=== PATIENT | male | born 1955 | race Caucasian/White ===

== ENCOUNTER 2018-05-26 15:27 | Inpatient (IN) | payer MEDICARE, BC ==
[~2018-05-26] VITALS: Ht 177.8 cm; Wt 104.7 kg
[2018-05-26 17:45] VITALS: BP 142/85
[2018-05-26 18:12] VITALS: BP 142/85
[2018-05-26] MEDS ORDERED: hydrALAzine 20 MG/ML, 1ML IVPush PRN (20:00)
[2018-05-26] MEDS ORDERED: ACETAMINOPHEN 325 MG TABLET PO PRN (20:00)
[2018-05-26] MEDS ORDERED: ONDANSETRON 2MG/ML, 2ML IVPush PRN (20:00)
[2018-05-26 20:17] VITALS: BP 148/84
[2018-05-26] MEDS: PLEASE ENTER ALLERGIES MC SCH (20:30)
[2018-05-26] MEDS ORDERED: PLEASE ENTER ALLERGIES MC SCH (21:30)
[2018-05-26 21:35] LABS: BASOPHILS % (AUTO) 1 % (0-1); EOSINOPHILS # (AUTO) 0.16 x10^3/uL (0-0.4); EOSINOPHILS % (AUTO) 2 % (1-7); LYMPHOCYTES # (AUTO) 1.51 x10^3/uL (1-3.4); LYMPHOCYTES % (AUTO) 14 % (22-44); MD NO; MEAN CORPUSCULAR HEMOGLOBIN 26.2 pg (27.5-34.5); MEAN CORPUSCULAR HGB CONC 32.5 g/dL (33.2-36.2); MEAN CORPUSCULAR VOLUME 80.8 fL (81-97); MEAN PLATELET VOLUME 9.1 fL (7.4-10.4); MONOCYTES # (AUTO) 0.75 x10^3/uL (0.2-0.8); MONOCYTES % (AUTO) 7 % (2-9); NEUTROPHILS # (AUTO) 8.43 x10^3/uL (1.8-6.8); NEUTROPHILS % (AUTO) 77 % (42-75); PLATELET COUNT 207 x10^3/uL (130-400); RED BLOOD COUNT 5.48 x10^6/uL (4.38-5.82); RED CELL DISTRIBUTION WIDTH 15.8 % (9.4-14.8)
[2018-05-26 21:45] LABS: INTERNATIONAL NORMALIZED RATIO 1.08 (0.93-1.1); PROTHROMBIN TIME 11.2 Seconds (9.6-11.5)
[2018-05-26 21:46] LABS: ANION GAP 7 mmol/L (5-15); CALCIUM 9.3 mg/dL (8.5-10.1); CHLORIDE 110 mmol/L (98-107); CREATININE 1.05 mg/dL (0.7-1.3)
[2018-05-26] MEDS: HEPARIN 5,000 UNITS/ML, 1ML SQ SCH (21:57)
[2018-05-26] MEDS: INSULIN LISPRO 100 UNITS/ML, PEN SQ-INSULIN SCH (23:09)
[2018-05-26] MEDS: SODIUM CHLORIDE 0.9% 1,000 ML IV SCH (23:10)
[2018-05-26] MEDS: HYDROcodone/APAP 5/325 TABLET PO PRN (23:59)
[2018-05-27 01:59] VITALS: BP 134/81
[2018-05-27] MEDS: PLEASE ENTER ALLERGIES MC SCH (03:27)
[2018-05-27] MEDS: HYDROcodone/APAP 5/325 TABLET PO PRN ×3 (04:14→18:37)
[2018-05-27] MEDS: HEPARIN 5,000 UNITS/ML, 1ML SQ SCH ×4 (04:15→21:40)
[2018-05-27] MEDS: SODIUM CHLORIDE 0.9% 1,000 ML IV SCH ×2 (06:33→22:38)
[2018-05-27] MEDS: INSULIN LISPRO 100 UNITS/ML, PEN SQ-INSULIN SCH ×3 (07:00→21:40)
[2018-05-27 07:50] VITALS: BP 133/79
[2018-05-27] MEDS: POLYETHYLENE GLYCOL 17 GM PACKET PO SCH (08:22)
[2018-05-27 08:37] LABS: HEMOGLOBIN A1C 7.8 % (4.2-6.3)
[2018-05-27] MEDS ORDERED: MAGNESIUM SULFATE PMX 4GM/100M 100 ML IV ONE (11:30)
[2018-05-27] MEDS: morphine SULFATE 10 MG/ML, 1ML IVPush PRN ×3 (11:47→15:30)
[2018-05-27 12:36] VITALS: BP 129/85
[2018-05-27] MEDS ORDERED: PARO40TA3 PO (12:38)
[2018-05-27] MEDS ORDERED: GABA300S PO (12:38)
[2018-05-27] MEDS ORDERED: METO50TA82 PO (12:39)
[2018-05-27] MEDS ORDERED: METF10003 PO (12:40)
[2018-05-27] MEDS ORDERED: FURO20TA3 PO (12:41)
[2018-05-27] MEDS ORDERED: POTA10TA11 PO (12:42)
[2018-05-27] MEDS ORDERED: TEMA30CA PO (12:43)
[2018-05-27] MEDS ORDERED: LISI-170 PO (12:44)
[2018-05-27] MEDS ORDERED: ATOR-2 PO (12:44)
[2018-05-27] MEDS ORDERED: INSULIN LISPRO 100 UNITS/ML, PEN SQ-INSULIN SCH (15:00)
[2018-05-27] MEDS ORDERED: GLIM4TAB2 PO (17:11)
[2018-05-27] MEDS ORDERED: ASPI-515 PO (17:13)
[2018-05-27] MEDS ORDERED: CLOP75TA52 PO (17:13)
[2018-05-27 20:00] VITALS: BP 146/85
[2018-05-27] MEDS ORDERED: TEMAZEPAM 30 MG CAPSULE PO PRN (22:00)
[2018-05-28 01:38] VITALS: BP 124/80
[2018-05-28 05:09] LABS: BASOPHILS # (AUTO) 0.04 x10^3/uL (0-0.1); BASOPHILS % (AUTO) 1 % (0-1); EOSINOPHILS # (AUTO) 0.33 x10^3/uL (0-0.4); EOSINOPHILS % (AUTO) 5 % (1-7); LYMPHOCYTES # (AUTO) 1.58 x10^3/uL (1-3.4); LYMPHOCYTES % (AUTO) 22 % (22-44); MD NO; MEAN CORPUSCULAR HEMOGLOBIN 26.4 pg (27.5-34.5); MEAN CORPUSCULAR HGB CONC 32.2 g/dL (33.2-36.2); MEAN PLATELET VOLUME 9.4 fL (7.4-10.4); MONOCYTES # (AUTO) 0.72 x10^3/uL (0.2-0.8); MONOCYTES % (AUTO) 10 % (2-9); NEUTROPHILS # (AUTO) 4.49 x10^3/uL (1.8-6.8); NEUTROPHILS % (AUTO) 63 % (42-75); PLATELET COUNT 177 x10^3/uL (130-400); RED BLOOD COUNT 5.18 x10^6/uL (4.38-5.82); RED CELL DISTRIBUTION WIDTH 16.3 % (9.4-14.8)
[2018-05-28 05:16] LABS: CHLORIDE 109 mmol/L (98-107)
[2018-05-28 05:27] LABS: % IRON SATURATION 11 % (20-55); ANION GAP 6 mmol/L (5-15); CALCIUM 8.3 mg/dL (8.5-10.1); CREATININE 0.84 mg/dL (0.7-1.3); IRON LEVEL 28 mcg/dL (65-175); TOTAL IRON BINDING CAPACITY 253 mcg/dL (250-450); TRANSFERRIN 186 mg/dL (200-360)
[2018-05-28] MEDS: HEPARIN 5,000 UNITS/ML, 1ML SQ SCH (06:00)
[2018-05-28] MEDS: INSULIN LISPRO 100 UNITS/ML, PEN SQ-INSULIN SCH ×4 (07:00→22:06)
[2018-05-28 07:20] VITALS: BP 140/91
[2018-05-28] MEDS: HYDROcodone/APAP 5/325 TABLET PO PRN ×2 (08:04→12:29)
[2018-05-28] MEDS: POLYETHYLENE GLYCOL 17 GM PACKET PO SCH (09:00)
[2018-05-28] MEDS: SODIUM CHLORIDE 0.9% 1,000 ML IV SCH (11:58)
[2018-05-28 12:11] VITALS: BP_SYST 104; BP_SYST 128; BP_DIAS 70; BP_DIAS 77
[2018-05-28] MEDS ORDERED: TRANEXAMIC ACID 100 MG/ML, 10ML ONE ×4 (16:06)
[2018-05-28] MEDS ORDERED: KETOROLAC 60 MG/2 ML ONE (16:06)
[2018-05-28] MEDS ORDERED: EPINEPHRINE 1 MG/ML, 1ML ONE (16:07)
[2018-05-28] MEDS ORDERED: ROPIvacaine/PF 0.2%, 20 ML ONE (16:07)
[2018-05-28] MEDS ORDERED: SODIUM CHLORIDE 0.9% 100 ML ONE (16:07)
[2018-05-28] MEDS ORDERED: VANCOMYCIN 1,000 MG ONE (16:07)
[2018-05-28] MEDS ORDERED: MIDAZOLAM 1 MG/ML, 2ML ONE (16:16)
[2018-05-28] MEDS ORDERED: LIDOCAINE GEL 2%, 5ML ONE (16:17)
[2018-05-28] MEDS ORDERED: FENTANYL PF 250 MCG/5ML ONE (16:17)
[2018-05-28] MEDS ORDERED: SUCCINYLCHOLINE 20 MG/ML, 10ML ONE (16:21)
[2018-05-28] MEDS ORDERED: PHENYLEPHRINE 10 MG/ML ONE (16:21)
[2018-05-28] MEDS ORDERED: SCOPOLAMINE PATCH, 1.5MG PATCH.TD72 TD PRN (17:30)
[2018-05-28] MEDS ORDERED: ONDANSETRON 2MG/ML, 2ML IV PRN (17:30)
[2018-05-28] MEDS ORDERED: LABETALOL 5MG/ML, 20ML IV PRN (17:30)
[2018-05-28] MEDS ORDERED: PROMETHAZINE 25 MG/ML, 1ML IV PRN (17:30)
[2018-05-28] MEDS ORDERED: ACETAMINOPHEN 325 MG TABLET PO PRN (17:30)
[2018-05-28] MEDS ORDERED: DIAZEPAM 5 MG/ML, 2ML IVPush PRN (17:30)
[2018-05-28] MEDS ORDERED: OXYcodone 5 MG/5 ML ORAL.SOL UDC PO PRN (17:30)
[2018-05-28] MEDS ORDERED: ALBUTEROL/IPRATROPIUM 2.5MG/0.5MG, 3 ML NPPB PRN (17:30)
[2018-05-28] MEDS ORDERED: MEPERIDINE/PF 25MG/0.5ML IVPush PRN (17:30)
[2018-05-28] MEDS ORDERED: MIDAZOLAM 1 MG/ML, 2ML IV PRN (17:30)
[2018-05-28] MEDS ORDERED: EPHEDRINE 50 MG/ML, 1ML IM PRN (17:30)
[2018-05-28] MEDS ORDERED: PROPOFOL 10 MG/ML, 20ML ONE (18:06)
[2018-05-28] MEDS ORDERED: CEFAZOLIN 1,000 MG ONE (18:06)
[2018-05-28] MEDS ORDERED: ONDANSETRON 2MG/ML, 2ML ONE (18:06)
[2018-05-28] MEDS ORDERED: DEXAMETHASONE 4 MG/ML, 1ML ONE (18:06)
[2018-05-28] MEDS ORDERED: TRANEXAMIC ACID 100 MG/ML, 10ML IV STA (18:23)
[2018-05-28] MEDS ORDERED: KETOROLAC 30 MG/1 ML IVPush PRN (18:30)
[2018-05-28] MEDS ORDERED: HYDROmorphone 2 MG/ML, 1ML ONE (18:36)
[2018-05-28] MEDS ORDERED: FENTANYL PF 100 MCG/2ML ONE ×2 (18:37→19:14)
[2018-05-28] MEDS ORDERED: OXYcodone 5 MG/5 ML ORAL.SOL UDC ONE (18:37)
[2018-05-28] MEDS: FENTANYL PF 100 MCG/2ML IV PRN ×2 (18:47→18:54)
[2018-05-28] MEDS: HYDROmorphone 1 MG/ML, 1ML IV PRN ×3 (18:58→19:18)
[2018-05-28] MEDS ORDERED: TRANEXAMIC ACID 1,000 MG in SODIUM CHLORIDE 0.9% 100 ML IV ONE (19:00)
[2018-05-28 20:00] VITALS: BP 126/77
[2018-05-29 00:02] VITALS: BP 124/73
[2018-05-29 02:08] VITALS: BP 112/70
[2018-05-29 05:56] LABS: MEAN CORPUSCULAR HEMOGLOBIN 26.6 pg (27.5-34.5); MEAN CORPUSCULAR HGB CONC 32.1 g/dL (33.2-36.2); MEAN CORPUSCULAR VOLUME 82.9 fL (81-97); MEAN PLATELET VOLUME 9.6 fL (7.4-10.4); PLATELET COUNT 172 x10^3/uL (130-400); RED BLOOD COUNT 4.88 x10^6/uL (4.38-5.82); RED CELL DISTRIBUTION WIDTH 16.3 % (9.4-14.8)
[2018-05-29] MEDS: SODIUM CHLORIDE 0.9% 1,000 ML IV SCH (06:09)
[2018-05-29 06:30] VITALS: BP 117/80
[2018-05-29 06:35] LABS: BASOPHILS # (AUTO) 0.01 x10^3/uL (0-0.1); BASOPHILS % (AUTO) 0 % (0-1); EOSINOPHILS # (AUTO) 0.01 x10^3/uL (0-0.4); EOSINOPHILS % (AUTO) 0 % (1-7); LYMPHOCYTES # (AUTO) 0.49 x10^3/uL (1-3.4); LYMPHOCYTES % (AUTO) 4 % (22-44); MD SCAN; MONOCYTES # (AUTO) 0.73 x10^3/uL (0.2-0.8); MONOCYTES % (AUTO) 6 % (2-9); NEUTROPHILS # (AUTO) 11.57 x10^3/uL (1.8-6.8); NEUTROPHILS % (AUTO) 90 % (42-75)
[2018-05-29] MEDS: INSULIN LISPRO 100 UNITS/ML, PEN SQ-INSULIN SCH ×3 (07:51→16:49)
[2018-05-29] MEDS: POLYETHYLENE GLYCOL 17 GM PACKET PO SCH (07:51)
[2018-05-29] MEDS ORDERED: ENOXAPARIN 40 MG/0.4 ML SQ SCH (09:00)
[2018-05-29] MEDS: HYDROcodone/APAP 5/325 TABLET PO PRN (10:01)
[2018-05-29 12:30] VITALS: BP 124/73
[2018-05-29] MEDS ORDERED: ACET325T14 PO (13:38)
[2018-05-29] MEDS ORDERED: KETO30VI27 IVPush (13:38)
[2018-05-29] MEDS ORDERED: ENOX40SY4 SQ (13:38)
[2018-05-29] MEDS ORDERED: INSU100I11 SQ-INSULIN (13:38)
[2018-05-29] MEDS ORDERED: FERR-51 PO (13:38)
[2018-05-29] MEDS ORDERED: ASCO500T6 PO (13:41)
[2018-05-29] MEDS ORDERED: HYDR-3240 PO (17:00)
[2018-05-29] MEDS ORDERED: FERROUS SULFATE 325 MG TABLET PO SCH (17:00)
[2018-05-30] MEDS ORDERED: ASCORBIC ACID 500 MG TABLET PO SCH (09:00)
== END 2018-05-29 17:15 | DRG 469 ==
LOC: 4NOR 17:35
PROVIDERS: ADMIT Hospitalist; ATTEND Hospitalist
PROC: 0SRB04Z Replacement of Left Hip Joint with Ceramic on Polyethylene Synthetic Substitute, Open Approach (ICD-10-PCS; principal; 2018-05-28 16:30)
DX: S72.002A Fracture of unspecified part of neck of left femur, initial encounter for closed fracture (principal); R65.11 Systemic inflammatory response syndrome (SIRS) of non-infectious origin with acute organ dysfunction; E11.51 Type 2 diabetes mellitus with diabetic peripheral angiopathy without gangrene; D72.829 Elevated white blood cell count, unspecified; E78.5 Hyperlipidemia, unspecified; E83.42 Hypomagnesemia; I10 Essential (primary) hypertension; I25.10 Atherosclerotic heart disease of native coronary artery without angina pectoris; I25.2 Old myocardial infarction; Z95.5 Presence of coronary angioplasty implant and graft; I69.322 Dysarthria following cerebral infarction; Z83.3 Family history of diabetes mellitus; Z89.512 Acquired absence of left leg below knee; R71.8 Other abnormality of red blood cells; W18.39XA Other fall on same level, initial encounter; Y93.89 Activity, other specified; Y92.096 Garden or yard of other non-institutional residence as the place of occurrence of the external cause; Y99.8 Other external cause status; Z79.82 Long term (current) use of aspirin; Z79.899 Other long term (current) drug therapy
CPT/HCPCS: 36415; 72170; 80048; 82728; 82962; 83036; 83540; 83550; 83735; 84100; 84466; 85025; 85610; 93005; C1713; J0171; J0690; J1100; J1170; J1644; J1650; J1885; J2250; J2405; J2704; J2795; J3010; J3370; C1776; J0330; J1815; J2270; J2370; J3475; J7030